=== PATIENT | male | born 1965 | race Caucasian/White ===

== ENCOUNTER → 2020-06-29 | Outpatient (CLI) | payer BC ==
[~2020-06-29] MED LIST: ALEVE 220MG220 MG PO; CLARITIN 1010 MG/TAB PO; MULTIPLE VITAMI1 CAP PO; VITAMIN D31000 I1 PO; ZESTRIL 20MG TA20 MG PO
== END ==
LOC: COL.RAD 07:56
DX: M16.12 Unilateral primary osteoarthritis, left hip (principal)
CPT/HCPCS: J3301; Q9967

== ENCOUNTER → 2021-04-29 | Outpatient (CLI) | payer BC | LOC: COL.RAD 07:44 | DX: M16.11 Unilateral primary osteoarthritis, right hip (principal) | CPT/HCPCS: J3301; Q9967 ==